=== PATIENT | female | born 1990 | race Caucasian/White ===

== ENCOUNTER → 2024-10-22 08:14 | Outpatient (REF) | payer OTHER, SELFPAY | LOC: PNTC 08:14 | PROVIDERS: ATTENDING PHYSICIAN Obstetrics & Gynecology | DX: O09.813 Supervision of pregnancy resulting from assisted reproductive technology, third trimester (principal) | CPT/HCPCS: 59025; 76815 ==

== ENCOUNTER → 2024-10-29 07:18 | Outpatient (REF) | payer OTHER, SELFPAY | LOC: PNTC 07:18 | PROVIDERS: ATTENDING PHYSICIAN Obstetrics & Gynecology | DX: O09.819 Supervision of pregnancy resulting from assisted reproductive technology, unspecified trimester (principal) | CPT/HCPCS: 59025; 76816 ==

== ENCOUNTER 2024-11-04 01:06 | Inpatient (IN) | payer OTHER, SELFPAY ==
[2024-11-04 01:25] VITALS: BP 116/85; BMI 32.4
[2024-11-04] MEDS: LR 1000 IV ×2 (01:54→05:27)
[2024-11-04 02:05] LABS: % Basophils 0.2 % (0-2); % Eosinophils 1.4 % (0-6); % Immature Granulocytes 0.5 % (0-0.5); % Lymphocytes 24.5 % (20.5-51.1); % Monocytes 6.7 % (1.7-9.3); % Neutrophils 66.7 % (42.2-75.2); Absolute Eosinophils 0.2 10^3/uL (0-0.7); Absolute Immature Granulocytes 0.1 10^3/uL (0-0.05); Absolute Monocytes 0.8 10^3/uL (0.1-0.6); Absolute Neutrophils 8.2 10^3/uL (1.4-6.5); Hematocrit 39.9 % (37.0-47.0); Hemoglobin 13.9 g/dL (12.0-16.0); Mean Corp Hgb Conc. 34.8 g/dL (33.0-37.0); Mean Corpuscular Hgb 30.5 pg (27.0-31.0); Mean Corpuscular Volume 87.7 fL (81.0-99.0); Mean Platelet Volume 10.9 fL (7.4-10.4); Nucleated Red Blood Cells % 0 %; Platelet Count 217 10^3/uL (130-400); Red Blood Cell Count 4.55 10^6/uL (4.20-5.40); Red Cell Dist. Width 12.7 % (11.5-14.5); White Blood Cell Count 12.3 10^3/uL (4.8-10.8)
[2024-11-04] MEDS: SUBLIMAZE 100 MCG EPIDURAL (02:26)
[2024-11-04] MEDS: FENTANYL/BUPIVACAINE 100 EPIDURAL ×2 (02:27→09:53)
[2024-11-04] MEDS: PITOCIN 30 UNITS/NSS 500 ML IV (07:14)
[2024-11-04] MEDS: MOTRIN 600 MG PO ×2 (14:17→20:44)
[2024-11-04] MEDS: HYDROCORTISONE 2.5% OINTMENT 1 APPLIC TOPICAL (21:04)
[2024-11-05 05:07] LABS: Hematocrit 35.9 % (37.0-47.0)
[2024-11-05] MEDS: MOTRIN 600 MG PO ×3 (05:24→18:44)
[2024-11-05] MEDS: SENOKOT-S 1 TABLET PO (08:27)
[2024-11-05] MEDS: HYDROCORTISONE 2.5% OINTMENT 1 APPLIC TOPICAL (08:27)
[2024-11-05] MEDS: PRENATAL PLUS 1 TABLET PO (08:27)
[2024-11-05 10:59] LABS: Syphilis/T. pallidum Ab Reflex Negative (Negative)
[2024-11-06] MEDS: MOTRIN 600 MG PO ×2 (04:23→11:03)
[2024-11-06] MEDS: PRENATAL PLUS 1 TABLET PO (08:22)
[2024-11-06] MEDS: SENOKOT-S 1 TABLET PO (08:22)
[2024-11-06] MEDS: TYLENOL 650 MG PO (08:42)
== END 2024-11-06 13:47 | disposition home or self-care (01) | DRG 807 ==
LOC: LDRP 01:06
PROVIDERS: Obstetrics & Gynecology; ADMITTING PHYSICIAN Obstetrics & Gynecology; FAMILY PHYSICIAN Family Medicine
PROC: 0KQM0ZZ Repair Perineum Muscle, Open Approach (ICD-10-PCS; 2024-11-04)
PROC: 10E0XZZ Delivery of Products of Conception, External Approach (ICD-10-PCS; 2024-11-04)
DX: O69.89X0 Labor and delivery complicated by other cord complications, not applicable or unspecified (principal); Z37.0 Single live birth; O70.1 Second degree perineal laceration during delivery; Z3A.37 37 weeks gestation of pregnancy
CPT/HCPCS: 88307; 36415; 85014; 85018; 85025; 86780; 86850; 86900; 86901

== ENCOUNTER 2025-03-25 16:13 | Emergency (ER) | payer OTHER, SELFPAY ==
[2025-03-25 16:15] VITALS: BP 126/78
--- NOTE | 2025-03-25 19:26 | ED.GENMED ---
History of Present Illness
General
Chief Complaint: Cold/Flu/URI Symptoms
Source: patient
Exam Limitations: none
Time Seen by Provider: 03/25/25 18:40
Nursing documentation reviewed up to this point in time: agreed with
History of Present Illness
History of Present Illness:
PT IS A 34 Y/O F
4 mo post , no issues vaginal delivery
says that about 2.5 weeks ago started with URI sxs and cough
cough was snigifcant, productive
went to pcp and got amoxicillin bid x 10 days which she completed last week
she says she finally in the past 3 days feels better, cough is nearly resolved but that she noticed she stil has R sided facial pressure/temporal pressure and today had clear darinage spontaneously form R nostril when she was leanign on the left
side of the couch today
onto her shirt
no blood
no trauma
got very anixous when she read that this could be CSF leak
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
she is anxious but otherwise no positional headache or vision changes
she does not have chronic rfrequent headaches
no chornic sinusitis
no fever
sent by PCP
Past History
Social History
Tobacco: Non-smoker
Alcohol: None
Drug: None
Personal:
Living: with family
Review of Systems
Review of Systems
Allergies reviewed?: Yes
All Other Systems: Not applicable
Phy Exam
Physical Exam
Physical Exam:
GENERAL: Alert , in no apparent distress
head: nontender, no signs basilar skull fx
EYE: pupils equal and reactive , eoms intact
NECK: Supple
ENT: b/l nasal mucosa edematous, erythematous, no rhinrorhea, no septal perf, no bleeding
R sinus maxillary and frontal are tender mildly
no swelling appreciated
R TM slightly bulging with clear fluid, no erythema
no auricualr swelling
no posterior auricular bruising or mastoid tenderness
CARDIAC: Regular rate and rhythm, no edema
LUNGS: Clear breath sounds bilaterally, no acute respiratory distress, no wheezes/rales/rhonchi, occ cough
NEUROLOGICAL: Alert and oriented, no focal neuro deficits
SKIN: Warm and dry, skin intact.
PSYCH: Normal and appropriate interaction.
Course
Orders/Labs/Results
Orders:
Orders
03/25/25 18:56
CT Sinuses W/o Iv Contrast Urgent
Comment:
Reason For Exam: R sinusisitis
03/25/25 19:00
CT Head W/o Iv Contrast Urgent
Comment:
Reason For Exam: spontaenous rhinorrhea R NOSTRIL, headache
Vital Signs
Initial and Last Documented VS:
Initial Vital Signs
Temp Pulse Resp BP Pulse Ox
37.0 C 58 16 126/78 98
03/25/25 16:15 03/25/25 16:15 03/25/25 16:15 03/25/25 16:15 03/25/25 16:15
Last Documented Vital Signs
Temp Pulse Resp BP Pulse Ox
37.0 C 58 16 126/78 98
03/25/25 16:15 03/25/25 16:15 03/25/25 16:15 03/25/25 16:15 03/25/25 19:34
MDM/Problems Addressed
Differential Diagnosis Includes:
sinusitis, rhiniitis, less likely CSF leak, brain tumor
MDM/Problems Addressed:
34 y/o F
post 4 mo no complications
had bronchitis 2.5 weeks aog
treated
improved but still haivng some R sided sinus pressure
today while leaning to her left side on the couch had spontaneous clear fluids form right nostril 1 teaspoon, no bleeding, no pain
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
then resolved within a few min
she has no ision changes or headache here
she is worried about CSF leak
no trauma
well appearing
pt has fidings c/w sinsuitis on exam which is much more likely cause of fluids
ct unforutnately shows a very subtle finding that could be due to pseudotumor
this does not make sense clincally and she also has findings of sinsutisi and mucus retention cyst which [facility] in the cliical picture
will treat with flonase, claritin and hold abx and if worse, start augmentin
f/u ent encouraged
d/w ed attending
ok to d/c home for outpatient f/u
pt apparently has neuroimaging form [facility] and they can compare
return precautions given
*Pulse Oximetry
SaO2: 98
Oxygen Mode of Delivery: Room air
Patient hypoxic: no (98)
*Critical Care Note
Total Time (30-74mins, 75-104mins- exclusive of procedures): Not Applicable
ED Attending Note
-
Portions of this chart may have been created with voice recognition software.� Occasional wrong word or��sound alike� substitutions may have occurred due to the inherent limitations of voice recognition software.
Discharge Plan
Departure
Prescriptions:
New
amoxicillin-pot clavulanate 875-125 mg tablet
1 tab PO BID Qty: 14 0RF
No Action
prenat.vits,esperanza,[id number] Tablet
1 tab PO DAILY
acetaminophen 325 mg Tablet
650 mg PO Q4HPRN PRN (Reason: mild pain) Qty: 0 0RF
sennosides-docusate sodium 8.6-50 mg Tablet
1 tab PO DAILYPRN PRN (Reason: constipation) Qty: 0 0RF
calcium carbonate [Calcium Antacid] 200 mg calcium (500 mg) Tablet,Chewable
400 mg PO Q6HPRN PRN (Reason: indigestion) Qty: 0 0RF
ibuprofen 600 mg Tablet
600 mg PO Q6HPRN PRN (Reason: moderate pain/cramps) Qty: 30 0RF
Referrals:
Aliza Perea DO [Family Provider, Family Practice]
Alfonso Thomas MD [Active, Otology] - Follow up in 5-7 days
Activity Restrictions/Additional Instructions:
YOU HAD RHINORRHEA PROBABLY FROM YOUR SINUSES WHICH WERE DRAINING
YOUR CAT SCAN HAD A SUBTLE FINDING WHICH COULD BE YOUR BASELINE AND NOT ABNORMAL
BUT IT COULD ALSO INDICATE SOMETHING CALLED IDIOPATHIC INTRACRANIAL HYPERTENSION
YOU DO NO THAVE SIGNS OF THIS HERE AND NO HEADACHE TO SUPPORT THIS
PLEASE FOLLOW UP WITH YOUR FAMILY DOCOTR
THEY CAN COMPARE TO YOUR OTHER SCANS TO BE SURE THIS IS NOT SOMETHING TO TREAT
YOU CAN TRY FLONASE 2 SPRAYS EACH NOSTRIL DAILY
CLARITIN ONCE A DAY 5 MG
AVOID DECONGESTANTS WHILE BREAST FEEDING
YOU CAN USE NASAL SALINE WASH WITH DISTILLED WATER (FOLLOW DIRECTIONS)
IF NO IMPROVEMENT
AUGMENTIN TWICE A DAY FOR 7 DAYS
F/U WITH ENT
RETURN FO RANY CONCERNS.
Interventions
Interventions:
*Risk Screen - Suicide Last Done: 03/25/25 16:15
*General Assessment Last Done: 03/25/25 19:20
*Neglect/Abuse Screening Last Done: 03/25/25 16:15
*ED- Fall Risk Assessment Last Done: 03/25/25 19:20
*ED COVID-19 Vaccine History Last Done: 03/25/25 19:20
ED- Pulmonary Assessment Last Done: 03/25/25 20:50
Discharge Date and Time
Print Language: WOLOF
[2025-03-25 21:33] VITALS: BP 111/77
== END 2025-03-25 21:40 | disposition home or self-care (01) ==
LOC: EMR 16:13
PROVIDERS: EMERGENCY PHYSICIAN Emergency Medicine; FAMILY PHYSICIAN Family Medicine
DX: J01.90 Acute sinusitis, unspecified (principal); F41.9 Anxiety disorder, unspecified
CPT/HCPCS: 99284; 70450; 70486